=== PATIENT | female | born 1970 ===

== ENCOUNTER 2017-05-04 09:11 | Emergency (ER) | payer OTHER ==
[2017-05-04 09:12] VITALS: BMI 25.4
[2017-05-04 09:27] VITALS: RESP 18; TEMP 99; O2SAT 100
--- NOTE | 2017-05-04 09:39 | ED PDOC ---
Arrival/HPI - General Chief Complaint: Back Pain Time Seen by Provider: 05/04/17 09:20 Historian: Patient, Carpenter Ship (Rahel Loaiza) - History of Present Illness Narrative History of Present Illness (Text): 05/04/17 09:35 A 47 year old female with no significant past medical history, as per dairy farm operator Rahel Loaiza, the patient presents to the emergency department with left upper back pain since 3PM yesterday. The patient states that the patient began after lifting boxes at work. She states that she has difficulty taking deep breaths because it causes her bach pain to worsen. She denies fevers, chills, nausea, vomiting, diarrhea, abdominal pain, syncope, headache, dizziness, rash, or any other complaints. PMD: None Time/Duration: Other (3PM Yesterday) Symptom Onset: Sudden Symptom Course: Unchanged Activities at Onset: Rest, Light Context: Work Past Medical History - Provider Review Nursing Documentation Reviewed: Yes - Cardiac Hx Hypertension: Yes - Pulmonary Hx Respiratory Disorders: No - Neurological Hx Neurological Disorder: No - HEENT Hx HEENT Disorder: No - Renal Hx Renal Disorder: No - Endocrine/Metabolic Hx Endocrine Disorders: No - Hematological/Oncological Hx Blood Disorders: No - Integumentary Hx Dermatological Disorder: No - Musculoskeletal/Rheumatological Hx Musculoskeletal Disorders: No - Gastrointestinal Hx Gastrointestinal Disorders: No - Genitourinary/Gynecological Hx Genitourinary Disorders: No - Psychiatric Hx Psychophysiologic Disorder: No Hx Substance Use: No - Surgical History Hx Section: Yes Family/Social History - Physician Review Nursing Documentation Reviewed: Yes Family/Social History: No Known Family HX Smoking Status: Never Smoked Hx Alcohol Use: No Hx Substance Use: No Hx Substance Use Treatment: No Allergies/Home Meds Allergies/Adverse Reactions: Allergies No Known Allergies Allergy (Verified 06/08/13 13:30) Review of Systems - Review of Systems Constitutional: absent: Fevers, Night Sweats Respiratory: absent: Cough Cardiovascular: Other (deep breaths cause increase in back pain). absent: Syncope Gastrointestinal: absent: Abdominal Pain, Diarrhea, Nausea, Vomiting Musculoskeletal: Back Pain (Left Upper Back Pain) Skin: absent: Rash Neurological: absent: Headache, Dizziness Physical Exam - Physical Exam Narrative Physical Exam (Text): Head: Atraumatic. Normocephalic. Eyes: PERRL. EOMI. Conjunctivae are not pale. ENT: Mucous membranes are moist and intact. Oropharynx is clear and symmetric. Neck: Supple. Full ROM. No JVD. No lymphadenopathy. Cardiovascular: Regular rate. Regular rhythm. No murmurs, rubs, or gallops. Distal pulses are 2+ and symmetric. Pulmonary/Chest: No evidence of respiratory distress. Clear to auscultation bilaterally. No wheezing, rales or rhonchi. Abdominal: Soft and non-distended. There is no tenderness. No rebound, guarding, or rigidity. No organomegaly. Good bowel sounds. Back: Palpable left upper back pain, worse with ROM of left shoulder. No edema/ rash/erythema. No CVA tenderness. Extremities: No edema. No cyanosis. No clubbing. Full range of motion in all extremities. No calf tenderness. Skin: Skin is warm and dry. No petechiae. No purpura. Neurological: Alert, awake, and oriented to person, place, time, and situation. Normal speech. Psychiatric: Good eye contact. Normal interaction, affect, and behavior. Vital Signs Reviewed: Yes Vital Signs Temp Pulse Resp BP Pulse Ox 05/04/17 11:26 77 18 126/79 100 05/04/17 09:12 99 F 83 18 155/87 H 100 Temperature: Afebrile Blood Pressure: Hypertensive Pulse: Regular Respiratory Rate: Normal Appearance: Positive for: Well-Appearing, Non-Toxic, Comfortable Pain Distress: Mild Mental Status: Positive for: Alert and Oriented X 3 Medical Decision Making ED Course and Treatment: 05/04/17 09:53 Impression: A 47 year old female with left upper back pain since 3PM yesterday at work after lifting boxes. She states it is difficult to take deep breaths because it increases her back pain. Differential Diagnosis included but are not limited to: Muscle Strain vs. PE vs. PTX Plan: -- Chest X-ray -- Labs -- Toradol -- Reassess and disposition Progress Notes: Chest X-ray Dictator : Rohit Dwyer MD Report Date : 05/04/2017 11:03:24 IMPRESSION: No active disease. Ddimer unremarkable. Chest xray with no pneumothorax. Patient nonsmoker, no calf pain, no hypoxia. No urinary symptoms. 05/04/17 11:19: On reassessment, patient's pain has improved after Toradol. D- Dimer was normal. Suspected muscle strain as pain palpable worse with movement, will discharge home with Naproxen. No heavy lifting was advised. Patient understands and agrees. Advised no heavy lifting, rest. Instructions translated with understanding. - Lab Interpretations Lab Results: 05/04/17 09:50 05/04/17 09:50 Lab Results 05/04/17 09:50: Sodium 141, Potassium 3.9, Chloride 106, Carbon Dioxide 23, Anion Gap 16, BUN 11, Creatinine 0.5, Est GFR ( Amer) > 60, Est GFR (Non- Af Amer) > 60, Random Glucose 96, Calcium 9.2, Total Bilirubin 0.4, AST 39, ALT 53, Alkaline Phosphatase 63, Total Protein 7.5, Albumin 4.1, Globulin 3.3, Albumin/Globulin Ratio 1.2 05/04/17 09:50: D-Dimer, Quantitative 0.23 05/04/17 09:50: WBC 8.4, RBC 4.25, Hgb 12.3, Hct 36.8, MCV 86.6, MCH 28.9, MCHC 33.4, RDW 14.0, Plt Count 341, MPV 9.5, Gran % 72.7 H, Lymph % (Auto) 21.2 L, [place] % (Auto) 4.7, Eos % (Auto) 1.3 L, Baso % (Auto) 0.1, Gran # 6.09, Lymph # 1.8, Summit # 0.4, Eos # 0.1, Baso # 0.01 I have reviewed the lab results: Yes - RAD Interpretation Radiology Orders: 05/04/17 09:35 CHEST TWO VIEWS (PA/LAT) [RAD] Stat - Medication Orders Current Medication Orders: Discontinued Medications Ketorolac Tromethamine (Toradol) 30 mg IVP ONCE ONE Stop: 05/04/17 09:37 Last Admin: 05/04/17 09:56 Dose: 30 mg - Scribe Statement The provider has reviewed the documentation as recorded by the Treasureibkarri Loaiza Provider Scribe Attestation: All medical record entries made by the Scribe were at my direction and personally dictated by me. I have reviewed the chart and agree that the record accurately reflects my personal performance of the history, physical exam, medical decision making, and the department course for this patient. I have also personally directed, reviewed, and agree with the discharge instructions and disposition. Disposition/Present on Arrival - Present on Arrival Any Indicators Present on Arrival: No History of DVT/PE: No History of Uncontrolled Diabetes: No Urinary Catheter: No History of Decub. Ulcer: No History Surgical Site Infection Following: None - Disposition Have Diagnosis and Disposition been Completed?: Yes Diagnosis: Muscle strain, Back pain Disposition: HOME/ ROUTINE Disposition Time: 11:00 Patient Plan: Discharge Condition: GOOD Discharge Instructions (ExitCare): Muscle Strain (ED), Back Pain (ED) Print Language: PERUVIAN Additional Instructions: No heavy lifting or strenuous activity until cleared by your physician or pain resolved. For any change in character or location of pain, any chest pain, any shortness of breath, any fever, any cough, any abdominal pain, any nausea or vomiting, any rash, any persistent or worsening of symptoms, get rechecked. Follow-up with your physician in 1-2 days. Prescriptions: Naproxen [Naprosyn Tab] 250 mg PO BID PRN #10 tab PRN Reason: Pain, Mild (1-3) Referrals: PCP,NO [Primary Care Provider] - Follow up with primary Forms: [employer] ([place]), WORK NOTE
[2017-05-04 10:04] LABS: BASO # 0.01 K/mm3 (0.0-2.0); BASO % 0.1 % (0.0-3.0); EOS # 0.1 (0.0-0.7); EOS % 1.3 % (1.5-5.0); GRAN # 6.09 (1.4-6.5); GRAN % 72.7 % (50.0-68.0); HEMATOCRIT 36.8 % (36.0-48.0); LYMPH # 1.8 (1.2-3.4); LYMPH % 21.2 % (22.0-35.0); MEAN CELL VOLUME 86.6 fl (80.0-105.0); MEAN CORPUSCULAR HEMOGLOBIN 28.9 pg (25.0-35.0); MEAN CORPUSCULAR HGB CONC 33.4 g/dl (31.0-37.0); MEAN PLATELET VOLUME 9.5 fl (7.0-11.0); MONO # 0.4 (0.1-0.6); MONO % 4.7 % (1.0-6.0); WHITE BLOOD COUNT 8.4 10^3/ul (4.5-11.0)
[2017-05-04 10:12] LABS: ALB/GLOB RATIO 1.2 (1.1-1.8); ALKALINE PHOSPHATASE 63 U/L (38-133); ALT/SGPT 53 U/L (7-56); AST/SGOT 39 U/L (15-39); BILIRUBIN,TOTAL 0.4 mg/dL (0.2-1.3); BLOOD UREA NITROGEN 11 mg/dL (7-21); CALCIUM 9.2 mg/dL (8.4-10.5); CARBON DIOXIDE 23 mmol/L (21-33); CHLORIDE 106 mmol/L (98-107); GFR AFRICAN-AMERICAN > 60; GLUCOSE,RANDOM 96 mg/dL (70-110); POTASSIUM 3.9 mmol/L (3.6-5.0); SODIUM 141 mmol/L (132-148); TOTAL PROTEIN 7.5 g/dL (5.8-8.3)
--- NOTE | 2017-05-04 11:04 | RAD ---
HISTORY: r/o ptx COMPARISON: No prior. TECHNIQUE: Chest PA and lateral FINDINGS: LUNGS: No active pulmonary disease. PLEURA: No significant pleural effusion identified. No pneumothorax apparent. CARDIOVASCULAR: Normal. OSSEOUS STRUCTURES: No significant abnormalities. VISUALIZED UPPER ABDOMEN: Normal. OTHER FINDINGS: None. IMPRESSION: No active disease.
[2017-05-04 11:27] VITALS: BP 126/79; PULSE 77
== END 2017-05-04 11:45 | disposition home or self-care (01) ==
LOC: ED 09:11
DX: S29.012A Strain of muscle and tendon of back wall of thorax, initial encounter (principal); X50.0XXA Overexertion from strenuous movement or load, initial encounter; Y93.89 Activity, other specified; Y92.89 Other specified places as the place of occurrence of the external cause; Y99.8 Other external cause status
CPT/HCPCS: 71020; 80053; 85025; 85378; 96374; 99283; J1885

== ENCOUNTER 2017-10-05 15:16 | Emergency (ER) | payer OTHER ==
[2017-10-05 15:20] VITALS: BMI 26.4
[2017-10-05 15:24] VITALS: TEMP 98.6
--- NOTE | 2017-10-05 16:08 | ED PDOC ---
Arrival/HPI - General Chief Complaint: Back Pain Time Seen by Provider: 10/05/17 15:30 Historian: Patient - History of Present Illness Narrative History of Present Illness (Text): 10/05/17 16:06 47yo female with PMhx of hyperlipdemia present with left sided neck pain x 10days. Pain is with lateral bending to the left side. States she did not take any analgesic for her pain. Denies trauma, focal weakness, back pain, focal weakness, dizziness, rash, fever, ay other complaint. Past Medical History - Provider Review Nursing Documentation Reviewed: Yes - Infectious Disease Hx of Infectious Diseases: None - Cardiac Hx Hypertension: Yes - Pulmonary Hx Respiratory Disorders: No - Neurological Hx Neurological Disorder: No - HEENT Hx HEENT Disorder: No - Renal Hx Renal Disorder: No - Endocrine/Metabolic Hx Endocrine Disorders: No - Hematological/Oncological Hx Blood Disorders: No - Integumentary Hx Dermatological Disorder: No - Musculoskeletal/Rheumatological Hx Musculoskeletal Disorders: No - Gastrointestinal Hx Gastrointestinal Disorders: No - Genitourinary/Gynecological Hx Genitourinary Disorders: No - Psychiatric Hx Psychophysiologic Disorder: No Hx Substance Use: No - Surgical History Hx Section: Yes - Anesthesia Hx Anesthesia: Yes Hx Anesthesia Reactions: No Hx Malignant Hyperthermia: No Family/Social History - Physician Review Nursing Documentation Reviewed: Yes Family/Social History: Unknown Family HX Smoking Status: Never Smoked Hx Alcohol Use: No Hx Substance Use: No Hx Substance Use Treatment: No Allergies/Home Meds Allergies/Adverse Reactions: Allergies No Known Allergies Allergy (Verified 06/08/13 13:30) Review of Systems - Physician Review All systems were reviewed & negative as marked: Yes - Review of Systems Constitutional: Normal Eyes: Normal ENT: Normal Respiratory: Normal Cardiovascular: Normal Gastrointestinal: Normal Genitourinary Female: Normal Musculoskeletal: Neck Pain Skin: Normal Neurological: Normal Endocrine: Normal Hemo/Lymphatic: Normal Psychiatric: Normal Physical Exam Vital Signs Reviewed: Yes Vital Signs Temp Pulse Resp BP Pulse Ox 10/05/17 18:02 78 18 132/75 96 10/05/17 15:23 98.6 F 83 18 136/82 96 Temperature: Afebrile Blood Pressure: Normal Pulse: Regular Respiratory Rate: Normal Appearance: Positive for: Well-Appearing, Non-Toxic, Comfortable Pain Distress: None Mental Status: Positive for: Alert and Oriented X 3 - Systems Exam Head: Present: Atraumatic, Normocephalic Pupils: Present: PERRL Extroacular Muscles: Present: EOMI Conjunctiva: Present: Normal Mouth: Present: Moist Mucous Membranes Neck: Present: Normal Range of Motion (With pain on lateral bend to the left), Paraspinal Tenderness (Left side). No: MIDLINE TENDERNESS Respiratory/Chest: Present: Clear to Auscultation, Good Air Exchange. No: Respiratory Distress, Accessory Muscle Use Cardiovascular: Present: Regular Rate and Rhythm, Normal S1, S2. No: Murmurs Abdomen: Present: Normal Bowel Sounds. No: Tenderness, Distention, Peritoneal Signs Back: Present: Normal Inspection Upper Extremity: Present: Normal Inspection. No: Cyanosis, Edema Lower Extremity: Present: Normal Inspection. No: Edema Neurological: Present: GCS=15, CN II-XII Intact, Speech Normal Skin: Present: Warm, Dry, Normal Color. No: Rashes Psychiatric: Present: Alert, Oriented x 3, Normal Insight, Normal Concentration Medical Decision Making - RAD Interpretation Radiology Orders: 10/05/17 15:59 CERVICAL SPINE >18YR W/OBLIQUE [RAD] Stat - Medication Orders Current Medication Orders: Discontinued Medications Cyclobenzaprine HCl (Flexeril) 10 mg PO STAT STA Stop: 10/05/17 16:01 Last Admin: 10/05/17 16:18 Dose: 10 mg Ketorolac Tromethamine (Toradol) 60 mg IM STAT STA Stop: 10/05/17 16:01 Last Admin: 10/05/17 16:18 Dose: 60 mg MAR Pain Assessment Document 10/05/17 16:18 (Rec: 10/05/17 16:23 [email or web address] Pain Reassessment Is this a pain reassessment? Yes Presence of Pain Presence of Pain Yes Pain Scale Used Pain Scale Used Numeric Location Left, Right or Bilateral Bilateral Pain Location Body Site Neck Description Description Constant Intensity of Pain at present 6 Pain Behavior Grasping Site Aggravating Factors Changing Position IM Administration Charges Document 10/05/17 16:18 (Rec: 10/05/17 16:23 [email or web address]) Injection Site MAR Injection Site Right Deltoid Charges for Administration # of IM Administrations 1 Disposition/Present on Arrival - Present on Arrival Any Indicators Present on Arrival: No History of DVT/PE: No History of Uncontrolled Diabetes: No Urinary Catheter: No History of Decub. Ulcer: No History Surgical Site Infection Following: None - Disposition Have Diagnosis and Disposition been Completed?: Yes Diagnosis: Neck pain Disposition: HOME/ ROUTINE Disposition Time: 18:05 Patient Plan: Discharge Condition: STABLE Discharge Instructions (ExitCare): Musculoskeletal Pain (ED) Additional Instructions: Follow up with your doctor Return to ED for any new symptoms Prescriptions: Cyclobenzaprine [Cyclobenzaprine HCl] 10 mg PO BID #10 tab Ibuprofen [Motrin Tab] 600 mg PO Q6 #20 tab Referrals: Thiago Mcgill, [Primary Care Provider] - Follow up with primary [facility] at [facility] [place] [Outside] - Follow up with primary Forms: [employer] ([place])
[2017-10-05 18:17] VITALS: BP 123/76; PULSE 71; RESP 16; O2SAT 97
--- NOTE | 2017-10-06 09:17 | RAD ---
PROCEDURE: Cervical Spine Radiographs. HISTORY: Pain. COMPARISON: None. FINDINGS: BONES: There is straightening of the cervical spine with loss of normal cervical lordosis. Vertebral alignment is normal. Vertebral height is maintained. There is no acute fracture or spondylolisthesis. Bone mineralization is normal. DISC SPACES: There is mild anterior spurring in the C5 and C6 vertebral bodies and mild facet arthropathy. Disc heights are maintained. SOFT TISSUES: Normal. No prevertebral soft tissue swelling. OTHER FINDINGS: None. IMPRESSION: Straightening of the cervical spine may be positional or related to muscle spasm. No acute fracture or spondylolisthesis. No radiographic evidence for significant degenerative disc disease.
== END 2017-10-05 18:22 | disposition home or self-care (01) ==
LOC: ED 15:16
DX: M54.2 Cervicalgia (principal)
CPT/HCPCS: 72050; 96372; 99284; J1885

== ENCOUNTER 2018-08-22 17:16 | Emergency (ER) | payer OTHER ==
[2018-08-22 17:37] VITALS: RESP 18; BMI 24.6
--- NOTE | 2018-08-22 18:36 | RAD ---
Date of service: 08/22/2018 PROCEDURE: Right ring finger radiographs. HISTORY: 4th finger pain COMPARISON: None available TECHNIQUE: AP radiograph of the right hand, as well as spot oblique and lateral images of ring finger were obtained. FINDINGS: RIGHT RING FINGER: No acute displaced fracture involving the 4th digit. Remainder of the right hand (as seen on the AP view) grossly unremarkable. JOINTS: No dislocation SOFT TISSUES: Marked soft tissue protuberance involving the lateral aspect of the 4th digit at the level of the proximal middle phalanx. Correlate with physical exam. No evidence of radiopaque foreign body. OTHER FINDINGS: None. IMPRESSION: Marked soft tissue protuberance involving the lateral aspect of the 4th digit at the level of the proximal middle phalanx. Correlate with physical exam.
--- NOTE | 2018-08-22 19:11 | ED PDOC ---
Arrival/HPI - General Chief Complaint: Finger,Hand,&Wrist Time Seen by Provider: 08/22/18 17:24 Historian: Patient - History of Present Illness Narrative History of Present Illness (Text): 08/22/18 19:08 48yo female with no pmhx who present with complaint of mild pain and swelling of her left 4th finger x 4months. states she came to ED for the persistent pain. Does not take any analgesic for the pain. Denies any other complaint. Past Medical History - Provider Review Nursing Documentation Reviewed: Yes - Infectious Disease Hx of Infectious Diseases: None - Cardiac Hx Hypertension: Yes - Pulmonary Hx Respiratory Disorders: No - Neurological Hx Neurological Disorder: No - HEENT Hx HEENT Disorder: No - Renal Hx Renal Disorder: No - Endocrine/Metabolic Hx Endocrine Disorders: No - Hematological/Oncological Hx Blood Disorders: No - Integumentary Hx Dermatological Disorder: No - Musculoskeletal/Rheumatological Hx Musculoskeletal Disorders: No - Gastrointestinal Hx Gastrointestinal Disorders: No - Genitourinary/Gynecological Hx Genitourinary Disorders: No - Psychiatric Hx Psychophysiologic Disorder: No Hx Substance Use: No - Surgical History Hx Section: Yes - Anesthesia Hx Anesthesia: Yes Hx Anesthesia Reactions: No Hx Malignant Hyperthermia: No Family/Social History - Physician Review Nursing Documentation Reviewed: Yes Family/Social History: Unknown Family HX Smoking Status: Never Smoked Hx Alcohol Use: No Hx Substance Use: No Hx Substance Use Treatment: No Allergies/Home Meds Allergies/Adverse Reactions: Allergies No Known Allergies Allergy (Verified 08/22/18 17:34) Home Medications: Home Meds Medication Instructions Recorded Confirmed Naproxen [Naprosyn Tab] 2 tab PO Q6 PRN 08/22/18 08/22/18 Review of Systems - Physician Review All systems were reviewed & negative as marked: Yes - Review of Systems Constitutional: Normal Eyes: Normal ENT: Normal Respiratory: Normal Cardiovascular: Normal Gastrointestinal: Normal Genitourinary Female: Normal Musculoskeletal: Arthralgias (Right 4th finger pain/swelling) Skin: Normal Neurological: Normal Endocrine: Normal Hemo/Lymphatic: Normal Psychiatric: Normal Physical Exam Vital Signs Reviewed: Yes Vital Signs Temp Pulse Resp BP Pulse Ox 08/22/18 17:16 98.1 F 89 18 173/84 H 96 Temperature: Afebrile Blood Pressure: Normal Pulse: Regular Respiratory Rate: Normal Appearance: Positive for: Well-Appearing, Non-Toxic, Comfortable Pain Distress: None Mental Status: Positive for: Alert and Oriented X 3 - Systems Exam Head: Present: Atraumatic, Normocephalic Pupils: Present: PERRL Extroacular Muscles: Present: EOMI Conjunctiva: Present: Normal Mouth: Present: Moist Mucous Membranes Neck: Present: Normal Range of Motion Respiratory/Chest: Present: Clear to Auscultation, Good Air Exchange. No: Re spiratory Distress, Accessory Muscle Use Cardiovascular: Present: Regular Rate and Rhythm, Normal S1, S2. No: Murmurs Abdomen: No: Tenderness, Distention, Peritoneal Signs Back: Present: Normal Inspection Upper Extremity: Present: Normal ROM, NORMAL PULSES, Tenderness (Mild tenderness over right 4th pip), Swelling (Soft tissue swelling noted on lateral right 4th finger), Neurovascularly Intact. No: Cyanosis, Edema Lower Extremity: Present: Normal Inspection. No: Edema Neurological: Present: GCS=15, CN II-XII Intact, Speech Normal Skin: Present: Warm, Dry, Normal Color. No: Rashes Psychiatric: Present: Alert, Oriented x 3, Normal Insight, Normal Concentration Medical Decision Making ED Course and Treatment: 08/22/18 19:12 PT in ED for stated history. Pt noted to have a ganglion cyst. right hand xray-- IMPRESSION: Marked soft tissue protuberance involving the lateral aspect of the 4th digit at the level of the proximal middle phalanx. Correlate with physical exam. Result was DW the pt. she was referred to hand surgeon/PMD for surgical removal DC with ibuprofen 600mg - RAD Interpretation Radiology Orders: 08/22/18 17:42 HAND RIGHT 4TH DIGIT (FINGER) [RAD] Stat - Medication Orders Current Medication Orders: Discontinued Medications Ibuprofen (Motrin Tab) 600 mg PO STAT STA Stop: 08/22/18 17:51 Last Admin: 08/22/18 18:28 Dose: 600 mg MAR Pain/Vitals Document 08/22/18 18:28 LA (Rec: 08/22/18 18:30 LA [id number]) Pain Reassessment Is This A Pain ReAssessment? No Sleep Is patient sleeping during reassessment? No Presence of Pain Presence of Pain Yes Pain Scale Used Protocol: PSCALES Pain Scale Used Numeric Location Left, Right or Bilateral Right Pain Location Body Site 4th finger Intensity 6 Scale Used Numeric Pain Behavior Guarding Disposition/Present on Arrival - Present on Arrival Any Indicators Present on Arrival: No History of DVT/PE: No History of Uncontrolled Diabetes: No Urinary Catheter: No History of Decub. Ulcer: No History Surgical Site Infection Following: None - Disposition Have Diagnosis and Disposition been Completed?: Yes Diagnosis: Ganglion cyst Disposition: HOME/ ROUTINE Disposition Time: 19:10 Patient Plan: Discharge Patient Problems: Current Active Problems Problem Status Onset Ganglion cyst Acute Condition: STABLE Discharge Instructions (ExitCare): Ganglion Cyst Additional Instructions: Follow up with your doctor/hand surgeon Return to ED for any new or worsening symptoms Prescriptions: Ibuprofen [Motrin Tab] 600 mg PO Q6 #15 tab Referrals: PCP,NO [Primary Care Provider] - Follow up with primary Vida Varner MD [Medical Doctor] - Follow up with primary [facility] [place] - Follow up with primary [facility] [Outside] - Follow up with primary Forms: [employer] ([place])
[2018-08-22 19:21] VITALS: BP 155/81; PULSE 87; TEMP 98; O2SAT 100
== END 2018-08-22 19:37 | disposition home or self-care (01) ==
LOC: ED 17:16
DX: M67.48 Ganglion, other site (principal)

== ENCOUNTER 2018-09-14 10:19 | Outpatient (CLI) | payer OTHER | END 2018-09-14 10:20 | disposition home or self-care (01) | LOC: RAD 10:19 ==

== ENCOUNTER 2018-10-11 08:18 | Outpatient (CLI) | payer OTHER | END 2018-10-11 08:19 | disposition home or self-care (01) | LOC: LAB 08:18 ==

== ENCOUNTER 2019-01-11 09:33 | Outpatient (CLI) | payer OTHER | END 2019-01-11 09:34 | disposition home or self-care (01) | LOC: LAB 09:33 ==